=== PATIENT | male | born 1960 | race African-American/Black ===

== ENCOUNTER 2016-12-24 21:01 | Emergency (ER) | payer MEDICARE, MEDICAID ==
[~2016-12-24] VITALS: Ht 170.2 cm; Wt 74.2 kg
[~2016-12-24 21:01] MED LIST: CARB15DR50 OP; DOCU100C59 PO; HYDR30CR77 RECTALLY; MULT-806 PO; OLAN20TA PO; OXYB15TA PO; SERT-88 PO; SIMV20TA89 PO; TERA2CAP PO; TRAV5DRO OP; [UNRECOGNIZED DRUG - CODE] PO; [UNRECOGNIZED DRUG - CODE] PO
--- OUTSIDE RECORDS SUMMARY | 2016-12-24 21:05 | XMS REPORT | Continuity of Care Document ---
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 - *Chronic Learning disability - *Chronic Depression - *Chronic Myopia of both eyes - *Chronic Hemorrhoids - *Chronic Seizure disorder - *Acute BPH - *Controlled Hypertonicity of bladder - *Controlled Other abnormal granulation tissue - Improved 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 - Improved Tympanic membrane perforation - *Stable 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 - *Resolved Tympanosclerosis - *Chronic Hypertonicity of bladder - *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 - *Chronic Pain in limb - *Acute Myringitis, chronic - *Poor control Granulation tissue abnormality - *Chronic Other specific developmental learning difficulties - *Chronic Hypertonicity of bladder - *Controlled BPH - *Controlled Family History Family Member Diagnosis Age At Onset Status Unknown Social History Social History Element Description Quantity Unknown Allergies, Adverse Reactions, Alerts Substance Reaction Severity Status PENICILLINS Unknown ACETAMINOPHEN Unknown HYDROCODONE BITARTRATE Unknown AMPICILLIN Unknown Medications Medication Instructions Dosage Effective Dates (start - stop) Status Lotrisone 1 %-0.05 % topical cream apply by topical route every day prn 0 - Active Tums 200 mg calcium (500 mg) chewable tablet take 2 by Oral route every 4 hours as needed 0 - Active hydrocortisone 1 % topical cream apply by topical route every day as needed 0 - Active loperamide 2 mg tablet take 1 (2MG) by oral route initiallt, then 1 cap after each loose stool max of 4 days - Active Guaifenesin-DM 10 mg-100 mg/5 mL oral liquid take 2 teaspoon by oral route every 4 hours as needed 10 - Active Senokot-S 8.6 mg-50 mg tablet take 2 Tablet by oral route 2 times every day as needed 0 - Active acetaminophen 325 mg tablet take 1 by Oral route every day as needed or 500mg as needed - Active Calmoseptine 0.44 %-20.625 % topical ointment Apply to perineal region afer each BM (clean first with moist towelettes) - Active Refresh Tears 0.5 % eye drops instill 2 drops in both eyes q am for red or dry eyes - Active Sudogest 30 mg tablet take 2 tablet (60MG) by oral route every 6 hours as needed 60 MG - Active TAKE 1 DAILY - Active Milk of Magnesia 400 mg/5 mL oral suspension take 30 milliliter by oral route every day as needed, followed by a full glass (8 oz) of liquid 0 2011 - Active simvastatin 20 mg tablet take 1 tablet (20MG) by oral route every day in the evening 20 MG - Active docusate sodium 100 mg tablet take 1 tablet (100MG) by oral route every day at bedtime as needed 100 MG - Active multivitamin tablet take 1 Tablet by Oral route every day 0 - Active terazosin 2 mg capsule take 1 capsule (2MG) by oral route every day at bedtime 2 MG - Active Zyprexa 20 mg tablet take 1 tablet (20MG) by oral route every day 20 MG - Active Advil 200 mg tablet take 1 tablet (200MG) by oral route every 6 hours as needed with food 200 MG - Active sertraline 100 mg tablet take 1 tablet (100MG) by oral route every day 100 MG - Active Proctozone-HC 2.5 % rectal cream apply by topical route 2 times every day to the affected area(s) 0 - Active Claritin Liqui-Gel 10 mg capsule take 1 cap daily - Active Travatan Z 0.004 % eye drops instill 1 drop by ophthalmic route every day into affected eye(s) in the evening 0 - Active ofloxacin 0.3 % ear drops instill 5 drops to right ear bid. - Active bisacodyl 10 mg rectal suppository insert 1 suppository (10MG) by rectal route every day as needed for constipation 10 MG - Active oxybutynin chloride ER 15 mg tablet,extended release 24 hr Take 1 tablet by mouth every day. - Active Immunizations Vaccine Date Status Comments Unknown Results Test Name Date and Time Measure Units Reference Range Abnormal Flag Comments Unknown Vital Signs Date / Time: Height Weight Pulse Rate Blood Pressure Temperature Unknown Procedures Procedure Date Unknown Encounters Encounter Location Date Patient Visit [facility] Pod Patient Visit Conversion Patient Visit [facility] Patient Visit [facility] Patient Visit [facility] Patient Visit [facility] Patient Visit [facility] Patient [facility] Patient Visit [facility] Patient Visit [facility] Patient [facility] Patient Visit [facility] Urology Patient Visit [facility] Patient Visit [facility] Patient Visit [facility] Urology Advance Directives Directive Effective Date Unknown
--- OUTSIDE RECORDS SUMMARY | 2016-12-24 21:05 | XMS REPORT | Referral Summary ---
Author Author [facility], Family Medicine Organization [facility] Address Unknown Phone Unavailable Care Team Providers Care Director Of Physical Education Name Role Phone Madison Junior Primary Care Physician [phone] Encounter VC Date(s): 06/22/15 - 06/22/15 [facility], [address] [place] [id number]- Discharge Disposition: 01-Home or Self Care Attending Physician: Villa Junior MD Admitting Physician: Villa Junior MD Vital Signs Most recent to 1 oldest [Reference Range]: Peripheral Pulse 84 bpm Rate [60-100 bpm] (06/22/15 2:07 PM) Blood Pressure 104/72 mmHg [90-140/60-90 mmHg] (06/22/15 2:07 PM) Problem List Condition Effective Dates Status Health Status Informant Overactive Active bladder(Confirmed) Bleeding Active hemorrhoid(Confirmed ) History of Active BPH(Confirmed) History of mental Active retardation(Confirme d) Hypercholesterolemia Active (Confirmed) Minimally Enlarged Active prostate(Confirmed) Legally Active blind(Confirmed) Prostatism(Confirmed Active ) Tobacco Active patient user(Confirmed) Allergies, Adverse Reactions, Alerts Substance Reaction Severity Status acetaminophen Active ampicillin Active HYDROcodone Active penicillin Active Medications benztropine 0.5 mg oral tablet mg tabs, Oral, BID, 0 Refill(s) Start Date: 06/22/15 Status: Ordered divalproex sodium 500 mg oral delayed release tablet 500 mg 1 tabs, Oral, BID, 0 Refill(s) Start Date: 06/22/15 Status: Ordered docusate sodium 100 mg oral capsule 100 mg, Oral, Daily, PT NEEDS APPT FOR ADDITIONAL REFILLS Fax- [phone], # 30 tabs, 0 Refill(s), Pharmacy: [facility] [place], 100 mg Oral Daily, Instr:PT NEEDS APPT FOR ADDITIONAL REFILLS; Fax- [phone] Start Date: 06/11/15 Status: Ordered loratadine 10 mg oral capsule 10 mg, Oral, Daily, MUST HAVE APPT PRIOR TO ADDITIONAL REFILLS [phone] , # 30 caps, 0 Refill(s), Pharmacy: [facility] [place], 10 mg Oral Daily, Instr:MUST HAVE APPT PRIOR TO ADDITIONAL REFILLS; [phone] Start Date: 06/11/15 Status: Ordered Milk of Magnesia 8% oral suspension 2.4 g 30 mL, Oral, Daily, as needed for constipation, For up to 3 days, # 360 mL , 10 Refill(s), Pharmacy: [facility] [place] Start Date: 06/08/15 Status: Ordered oxybutynin 15 mg/24 hr oral tablet, extended release 15 mg 1 tabs, Oral, Daily, # 30 tabs, 0 Refill(s), Pharmacy: [facility] [place], 1 tabs Oral Daily Start Date: 06/15/15 Status: Ordered Refresh ophthalmic solution 2 drops, Eye-Both, Daily, # 30 mL, 11 Refill(s) Start Date: 01/18/15 Status: Ordered RisperDAL Consta 50 mg/2 weeks intramuscular injection, extended release IntraMuscular, q2wk, 0 Refill(s) Start Date: 09/15/14 Status: Ordered sertraline 100 mg oral tablet 100 mg 1 tabs, Oral, Daily, # 30 tabs, 0 Refill(s), Pharmacy: [facility] [place], 1 tabs Oral Daily Start Date: 06/15/15 Status: Ordered simvastatin 20 mg oral tablet 20 mg 1 tabs, Oral, Bedtime (once a day), # 90 tabs, 1 Refill(s), Pharmacy: [facility] [place], 1 tabs Oral Bedtime (once a day) Start Date: 12/14/15 Status: Ordered terazosin 2 mg oral capsule 2 mg 1 caps, Oral, Bedtime (once a day), # 30 caps, 0 Refill(s), Pharmacy: [facility] [place], 1 caps Oral Bedtime (once a day) Start Date: 06/15/15 Status: Ordered Therems M oral tablet 1 tabs, Oral, Daily, NEEDS APPT PRIOR TO ADDITIONAL REFILLS, # 30 tabs, 0 Refill (s), Pharmacy: [facility] [place] Start Date: 06/11/15 Status: Ordered Therems M oral tablet 1 tabs, Oral, Daily, # 30 tabs, 0 Refill(s), Pharmacy: [facility] [place] Start Date: 06/15/15 Status: Ordered Travatan Z 0.004% ophthalmic solution 1 drops, Eye-Both, qPM, [facility] , # 2 mL, 1 Refill(s) Start Date: 12/09/14 Status: Ordered Vitamin B12 500 mcg oral tablet 1 tabs, Oral, Daily, 0 Refill(s) Start Date: 09/15/14 Status: Ordered Results No data available for this section Immunizations Vaccine Date Refusal Reason tetanus/diphth/pertuss (Tdap) adult/adol 07/30/09 hepatitis B adult vaccine 09/02/02 hepatitis B adult vaccine 04/02/02 hepatitis B adult vaccine 06/18/01 influenza virus vaccine, inactivated 08/04/15 influenza virus vaccine, inactivated 08/05/14 tetanus-diphth toxoids (Td) adult/adol 12/19/94 Procedures Procedure Date Related Diagnosis Body Site Colonoscopy - repeat 10 yrs (09/16/2019) 09/16/09 Social History Social History Type Response Smoking Status Current every day smoker; Type: Cigarettes; Tobacco use per day: 1 Pack; Started at age: 89 1States he smokes 1 cigarette each day. Assessment and Plan Extracted from: Title: Ambulatory Patient Education Author: Villa Junior MD Date: Family Medicine Cholesterol Cholesterol is a fat. Your body needs a small amount of cholesterol. Cholesterol may build up in your blood vessels. This increases your chance of having a heart attack or stroke. You cannot feel your cholesterol levels. The only way to know your cholesterol level is high is with a blood test. Keep your test results. Work with your doctor to keep your cholesterol at a good level. WHAT DO THE TEST RESULTS MEAN? Total cholesterol is how much cholesterol is in your blood. LDL is bad cholesterol. This is the type that can build up. You want LDL to be low. HDL is good cholesterol. It cleans your blood vessels and carries LDL away. You want HDL to be high. Triglycerides are fat that the body can burn for energy or store. WHAT ARE GOOD LEVELS OF CHOLESTEROL? Total cholesterol below 200. LDL below 100 for people at risk. Below 70 for those at very high risk. HDL above 50 is good. Above 60 is best. Triglycerides below 150. HOW CAN I LOWER MY CHOLESTEROL? Diet. Follow your diet programs as told by your doctor. Choose fish, white meat chicken, roasted turkey, or baked turkey. Try not to eat red meat, fried foods, or processed meats such as sausage and lunch meats. Eat lots of fresh fruits and vegetables. Choose whole grains, beans, pasta, potatoes, and cereals. Use only small amounts of olive, corn, or canola oils. Try not to eat butter, mayonnaise, shortening, or palm kernel oils. Try not to eat foods with trans fats. Drink skim or nonfat milk. Eat low-fat or nonfat yogurt and cheeses. Try not to drink whole milk or cream. Try not to eat ice cream, egg yolks, and full- fat cheeses. Healthy desserts include luisa food cake, gema snaps, animal crackers, hard candy, popsicles, and low-fat or nonfat frozen yogurt. Try not to eat pastries, cakes, pies, and cookies. Exercise. Follow your exercise programs as told by your doctor. Be more active. You can try gardening, walking, or taking the stairs. Ask your doctor about how you can be more active. Medicine. Take medicine as told by your doctor. Document Released: 12/21/2009 Document Revised: 02/08/2015 Document Reviewed: [facility] Patient Information 2015 [facility]. This information is not intended to replace advice given to you by your health care provider. Make sure you discuss any questions you have with your health care provider. Ophthalmology Blurred Vision You have been seen today complaining of blurred vision. This means you have a loss of ability to see small details. CAUSES Blurred vision can be a symptom of underlying eye problems, such as: Aging of the eye (presbyopia). Glaucoma. Cataracts. Eye infection. Eye-related migraine. Diabetes mellitus. Fatigue. Migraine headaches. High blood pressure. Breakdown of the back of the eye (macular degeneration). Problems caused by some medications. The most common cause of blurred vision is the need for eyeglasses or a new prescription. Today in the emergency department, no cause for your blurred vision can be found. SYMPTOMS Blurred vision is the loss of visual sharpness and detail (acuity). DIAGNOSIS Should blurred vision continue, you should see your caregiver. If your caregiver is your primary care physician, he or she may choose to refer you to another specialist. TREATMENT Do not ignore your blurred vision. Make sure to have it checked out to see if further treatment or referral is necessary. SEEK MEDICAL CARE IF: You are unable to get into a specialist so we can help you with a referral. SEEK IMMEDIATE MEDICAL CARE IF: You have severe eye pain, severe headache, or sudden loss of vision. MAKE SURE YOU: Understand these instructions. Will watch your condition. Will get help right away if you are not doing well or get worse. Document Released: 09/26/2004 Document Revised: 12/16/2012 Document Reviewed: [facility] Patient Information 2015 [employer]. This information is not intended to replace advice given to you by your health care provider. Make sure you discuss any questions you have with your health care provider. No follow up information was provided. Extracted from: Title: Office Visit Note Author: Villa Junior MD Date: 06/22/15 Assessment/Plan History of BPH Continue with the current medications. Ordered: Office Visit Level 4 Est 38097 History of mental retardation stable. Ordered: Office Visit Level 4 Est 46098 Hypercholesterolemia Ordered: Office Visit Level 4 Est 65454 Legally blind Ordered: Office Visit Level 4 Est 64612
--- OUTSIDE RECORDS SUMMARY | 2016-12-24 21:05 | XMS REPORT | Referral Summary ---
Author Author [facility] Organization [facility] Address Unknown Phone Unavailable Care Team Providers Care Accounts Payable Payroll Coordinator Name Role Phone Madison Junior Primary Care Physician [phone] Encounter VC Date(s): 06/28/16 - 06/28/16 [facility], [address] [place] [address]- Discharge Diagnosis: Bleeding hemorrhoid Discharge Diagnosis: Hypercholesterolemia Discharge Diagnosis: History of mental retardation Discharge Diagnosis: History of BPH Discharge Diagnosis: Tobacco user Discharge Disposition: 01-Home or Self Care Attending Physician: Villa Junior MD Admitting Physician: Villa Junior MD Vital Signs Most recent to 1 oldest [Reference Range]: Peripheral Pulse 92 bpm Rate [60-100 bpm] (06/28/16 1:42 PM) Blood Pressure 126/82 mmHg [90-140/60-90 mmHg] (06/28/16 1:42 PM) SpO2 96 % (06/28/16 1:42 PM) Problem List Condition Effective Dates Status [...] PT NEEDS APPT FOR ADDITIONAL REFILLS Fax- [phone], # 90 tabs, 0 Refill(s), Pharmacy: [facility] [place], 100 mg Oral Daily, Instr:PT NEEDS APPT FOR ADDITIONAL REFILLS; Fax- [phone] Start Date: 06/28/16 Status: Ordered loratadine 10 mg oral capsule 10 mg, Oral, Daily, MUST HAVE APPT PRIOR TO ADDITIONAL REFILLS [phone] , # 90 caps, 0 Refill(s), Pharmacy: [facility] [place], 10 mg Oral Daily, Instr:MUST HAVE APPT PRIOR TO ADDITIONAL REFILLS; [phone] Start Date: 06/28/16 Status: Ordered Milk of Magnesia 8% oral suspension 2.4 g 30 mL, Oral, Daily, as needed for constipation, For up to 3 days, # 360 mL , 10 Refill(s), Pharmacy: [facility] [place] Start Date: 06/08/15 Status: Ordered oxybutynin 15 mg/24 hr oral tablet, extended release 15 mg 1 tabs, Oral, Daily, # 90 tabs, 0 Refill(s), Pharmacy: [facility] [place], 1 tabs Oral Daily Start Date: 06/28/16 Status: Ordered Preparation H 0.25%-1% rectal cream See Instructions, Use as directed on package, # 1 Each, 0 Refill(s), Pharmacy: [facility] [place] Start Date: 01/27/16 Status: Ordered Refresh ophthalmic solution 2 drops, Eye-Both, Daily, # 30 mL, 11 Refill(s) Start Date: 01/18/15 Status: Ordered RisperDAL Consta 50 mg/2 weeks intramuscular injection, extended release 50 mg, IntraMuscular, q2wk, # 2 syringes, 3 Refill(s), Pharmacy: [facility] [place], 50 mg IntraMuscular q2wk Start Date: 03/15/16 Status: Ordered sertraline 100 mg oral tablet 100 mg 1 tabs, Oral, Daily, # 90 tabs, 0 Refill(s), Pharmacy: [facility] [place], 1 tabs Oral Daily Start Date: 06/28/16 Status: Ordered simvastatin 20 mg oral tablet 20 mg 1 tabs, Oral, Bedtime (once a day), keep appt scheduled in Sept or no additional refills, # 90 tabs, 0 Refill(s), Pharmacy: [facility] [place], 1 tabs Oral Bedtime (once a day),Instr:keep appt scheduled in Jun or no additional refills Start Date: 06/28/16 Status: Ordered terazosin 2 mg oral capsule 2 mg 1 caps, Oral, Bedtime (once a day), # 90 caps, 0 Refill(s), Pharmacy: [facility] [place], 1 caps Oral Bedtime (once a day) Start Date: 06/28/16 Status: Ordered Therems M oral tablet 1 tabs, Oral, Daily, # 90 tabs, 0 Refill(s), Pharmacy: [facility] [place] Start Date: 06/28/16 Status: Ordered Therems M oral tablet 1 tabs, Oral, Daily, # 30 tabs, 0 Refill(s), Pharmacy: [facility] [place] Start Date: 06/15/15 Status: Ordered Travatan Z 0.004% ophthalmic solution 1 drops, Eye-Both, qPM, [facility] , must have appt. for any more refills., # 2 mL, 0 Refill(s), Pharmacy: [facility] [place] Start Date: 06/14/16 Status: Ordered Vitamin B12 500 mcg oral tablet 500 mcg 1 tabs, Oral, Daily, # 90 tabs, 0 Refill(s), Pharmacy: [facility] [place], 1 tabs Oral Daily Start Date: 06/28/16 Status: Ordered Results No data available for [...] Author: Villa Junior MD Date: Family Medicine Fat and Cholesterol Restricted Diet High levels of fat and cholesterol in your blood may lead to various health problems, such as diseases of the heart, blood vessels, gallbladder, liver, and pancreas. Fats are concentrated sources of energy that come in various forms. Certain types of fat, including saturated fat, may be harmful in excess. Cholesterol is a substance needed by your body in small amounts. Your body makes all the cholesterol it needs. Excess cholesterol comes from the food you eat. When you have high levels of cholesterol and saturated fat in your blood, health problems can develop because the excess fat and cholesterol will gather along the donato of your blood vessels, causing them to narrow. Choosing the right foods will help you control your intake of fat and cholesterol. This will help keep the levels of these substances in your blood within normal limits and reduce your risk of disease. WHAT IS MY PLAN? Your health care provider recommends that you: Get no more than % of the total calories in your daily diet from fat. Limit your intake of saturated fat to less than % of your total calories each day. Limit the amount of cholesterol in your diet to less than mg per day. WHAT TYPES OF FAT SHOULD I CHOOSE? Choose healthy fats more often. Choose monounsaturated and polyunsaturated fats, such as olive and canola oil, flaxseeds, walnuts, almonds , and seeds. Eat more omega-3 fats. Good choices include salmon, mackerel, sardines, tuna, flaxseed oil, and ground flaxseeds. Aim to eat fish at least two times a week. Limit saturated fats. Saturated fats are primarily found in animal products, such as meats, butter, and cream. Plant sources of saturated fats include palm oil, palm kernel oil, and coconut oil. Avoid foods with partially hydrogenated oils in them. These contain trans fats. Examples of foods that contain trans fats are stick margarine, some tub margarines, cookies, crackers, and other baked goods. WHAT GENERAL GUIDELINES DO I NEED TO FOLLOW? These guidelines for healthy eating will help you control your intake of fat and cholesterol: Check food labels carefully to identify foods with trans fats or high amounts of saturated fat. Fill one half of your plate with vegetables and green salads. Fill one fourth of your plate with whole grains. Look for the word "whole " as the first word in the ingredient list. Fill one fourth of your plate with lean protein foods. Limit fruit to two servings a day. Choose fruit instead of juice. Eat more foods that contain soluble fiber. Examples of foods that contain this type of fiber are apples, broccoli, carrots, beans, peas, and barley. Aim to get 2030 g of fiber per day. Eat more home-cooked food and less restaurant, buffet, and fast food. Limit or avoid alcohol. Limit foods high in starch and sugar. Limit fried foods. Cook foods using methods other than frying. Baking, boiling, grilling, and broiling are all great options. Lose weight if you are overweight. Losing just 510% of your initial body weight can help your overall health and prevent diseases such as diabetes and heart disease. WHAT FOODS CAN I EAT? Grains Whole grains, such as whole wheat or whole grain breads, crackers, cereals, and pasta. Unsweetened oatmeal, bulgur, barley, quinoa, or brown rice. [place] or whole wheat flour tortillas. Vegetables Fresh or frozen vegetables (raw, steamed, roasted, or grilled). Green salads. Fruits All fresh, canned (in natural juice), or frozen fruits. Meat and Other Protein Products Ground beef (85% or leaner), grass-fed beef, or beef trimmed of fat. Skinless chicken or turkey. Ground chicken or turkey. Pork trimmed of fat. All fish and seafood. Eggs. Dried beans, peas, or lentils. Unsalted nuts or seeds. Unsalted canned or dry beans. Dairy Low-fat dairy products, such as skim or 1% milk, 2% or reduced-fat cheeses, low- fat ricotta or cottage cheese, or plain low-fat yogurt. Fats and Oils Tub margarines without trans fats. Light or reduced-fat mayonnaise and salad dressings. Avocado. Sandy, canola, sesame, or safflower oils. Natural peanut or almond butter (choose ones without added sugar and oil). The items listed above may not be a complete list of recommended foods or beverages. Contact your dietitian for more options. WHAT FOODS ARE NOT RECOMMENDED? Grains White bread. White pasta. White rice. Cornbread. Bagels, pastries, and croissants. Crackers that contain trans fat. Vegetables White potatoes. [place]. Creamed or fried vegetables. Vegetables in a cheese sauce. Fruits Dried fruits. Canned fruit in light or heavy syrup. Fruit juice. Meat and Other Protein Products Fatty cuts of meat. Ribs, chicken wings, burgos, sausage, bologna, salami, chitterlings, fatback, hot dogs, bratwurst, and packaged luncheon meats. Liver and organ meats. Dairy Whole or 2% milk, cream, [id number]-ovpx, and cream cheese. Whole milk cheeses. Whole-fat or sweetened yogurt. Full-fat cheeses. Nondairy creamers and whipped toppings. Processed cheese, cheese spreads, or cheese curds. Sweets and Desserts [place] syrup, sugars, honey, and molasses. Candy. Jam and jelly. Syrup. Sweetened cereals. Cookies, pies, cakes, donuts, muffins, and ice cream. Fats and Oils Butter, stick margarine, lard, shortening, ghee, or burgos fat. Coconut, palm kernel, or palm oils. Beverages Alcohol. Sweetened drinks (such as sodas, lemonade, and fruit drinks or punches) . The items listed above may not be a complete list of foods and beverages to avoid. Contact your dietitian for more information. This information is not intended to replace advice given to you by your health care provider. Make sure you discuss any questions you have with your health care provider. Document Released: 09/24/2006 Document Revised: 10/15/2015 Document Reviewed: [facility] Patient Information 2016 [employer]rum. Obstetrics and Gynecology Hemorrhoids Hemorrhoids are swollen veins around the rectum or anus. There are two types of hemorrhoids: Internal hemorrhoids. These occur in the veins just inside the rectum. They may poke through to the outside and become irritated and painful. External hemorrhoids. These occur in the veins outside the anus and can be felt as a painful swelling or hard lump near the anus. CAUSES . Obesity. Constipation or diarrhea. Straining to have a bowel movement. Sitting for long periods on the toilet. Heavy lifting or other activity that caused you to strain. Anal intercourse. SYMPTOMS Pain. Anal itching or irritation. Rectal bleeding. Fecal leakage. Anal swelling. One or more lumps around the anus. DIAGNOSIS Your caregiver may be able to diagnose hemorrhoids by visual examination. Other examinations or tests that may be performed include: Examination of the rectal area with a gloved hand (digital rectal exam). Examination of anal canal using a small tube (scope). A blood test if you have lost a significant amount of blood. A test to look inside the colon (sigmoidoscopy or colonoscopy). TREATMENT Most hemorrhoids can be treated at home. However, if symptoms do not seem to be getting better or if you have a lot of rectal bleeding, your caregiver may perform a procedure to help make the hemorrhoids get smaller or remove them completely. Possible treatments include: Placing a rubber band at the base of the hemorrhoid to cut off the circulation (rubber band ligation). Injecting a chemical to shrink the hemorrhoid (sclerotherapy). Using a tool to burn the hemorrhoid (infrared light therapy). Surgically removing the hemorrhoid (hemorrhoidectomy). Stapling the hemorrhoid to block blood flow to the tissue (hemorrhoid stapling). HOME CARE INSTRUCTIONS Eat foods with fiber, such as whole grains, beans, nuts, fruits, and vegetables. Ask your doctor about taking products with added fiber in them ( fibersupplements). Increase fluid intake. Drink enough water and fluids to keep your urine clear or pale yellow. Exercise regularly. Go to the bathroom when you have the urge to have a bowel movement. Do not wait. Avoid straining to have bowel movements. Keep the anal area dry and clean. Use wet toilet paper or moist towelettes after a bowel movement. Medicated creams and suppositories may be used or applied as directed. Only take tdxp-qqg-ndpnwuv or prescription medicines as directed by your caregiver. Take warm sitz baths for 1520 minutes, 34 times a day to ease pain and discomfort. Place ice packs on the hemorrhoids if they are tender and swollen. Using ice packs between sitz baths may be helpful. Put ice in a plastic bag. Place a towel between your skin and the bag. Leave the ice on for 1520 minutes, 34 times a day. Do not use a donut-shaped pillow or sit on the toilet for long periods. This increases blood pooling and pain. SEEK MEDICAL CARE IF: You have increasing pain and swelling that is not controlled by treatment or medicine. You have uncontrolled bleeding. You have difficulty or you are unable to have a bowel movement. You have pain or inflammation outside the area of the hemorrhoids. MAKE SURE YOU: Understand these instructions. Will watch your condition. Will get help right away if you are not doing well or get worse. This information is not intended to replace advice given to you by your health care provider. Make sure you discuss any questions you have with your health care provider. Document Released: 09/21/2001 Document Revised: 09/10/2013 Document Reviewed: [facility] Patient Information 2016 ilustrum. No follow up information was provided. Extracted from: Title: Office Visit Note Author: Villa Junior MD Date: 06/28/16 Assessment/Plan 1.Bleeding hemorrhoid Continue with the current treatment. Staff is trying to work with him on not wiping the rectum so hard. Ordered: Office Visit Level 4 Est 11868 2.History of BPH stable. Ordered: Office Visit Level 4 Est 79466 3.History of mental retardation Unchanged. Ordered: Office Visit Level 4 Est 56082 4.Hypercholesterolemia No change in treatment. Ordered: Office Visit Level 4 Est 32812 5.Tobacco user Encourage to stop smoking. Ordered: Office Visit Level 4 Est 96884
--- OUTSIDE RECORDS SUMMARY | 2016-12-24 21:05 | XMS REPORT | Referral Summary ---
Author Author [facility] Organization [facility] Address Unknown Phone Unavailable Care Team Providers Care Carrier Blower Name Role Phone Madison Junior Primary Care Physician [phone] Encounter VC Date(s): 08/04/15 - 08/04/15 [facility], [address] [place] [address]- Discharge Disposition: 01-Home or Self Care Attending Physician: Villa Junior MD Admitting Physician: Villa Junior MD Vital Signs No data available for this section Problem List Condition Effective Dates Status Health [...] PT NEEDS APPT FOR ADDITIONAL REFILLS Fax- [phone], # 30 tabs, 0 Refill(s), Pharmacy: [facility] [place], 100 mg Oral Daily, Instr:PT NEEDS APPT FOR ADDITIONAL REFILLS; Fax- [phone] Start Date: 06/11/15 Status: Ordered loratadine 10 mg oral capsule 10 mg, Oral, Daily, MUST HAVE APPT PRIOR TO ADDITIONAL REFILLS [phone] , # 30 caps, 0 Refill(s), Pharmacy: [facility] [place], 10 mg Oral Daily, Instr:MUST HAVE APPT PRIOR TO ADDITIONAL REFILLS; [phone] Start Date: 06/11/15 Status: Ordered Milk of [...] tabs, Oral, Bedtime (once a day), # 30 tabs, 0 Refill(s), Pharmacy: [facility] [place], 1 tabs Oral Bedtime (once a day) Start Date: 06/15/15 Status: Ordered terazosin 2 mg oral capsule [...] 1 cigarette each day. Assessment and Plan No data available for this section
--- OUTSIDE RECORDS SUMMARY | 2016-12-24 21:05 | XMS REPORT | Continuity of Care Document ---
Author Author [facility] Organization [facility] Address Unknown Phone Unavailable Allergies Active Description Code Type Severity Reaction Onset Reported/Identified Relationship to Patient Clinical Status Yes acetaminophen NKMA N/A N/A 02/04/2014 Yes ampicillin NKMA N/A N/A 02/04/2014 Yes HYDROcodone NKMA N/A N/A 02/04/2014 Yes penicillin NKMA N/A N/A 02/04/2014 Medications Problems Procedures Results Encounters ACCT No. Visit Date/Time Discharge Status Pt. Type Provider Facility Loc./Unit Complaint [id number] 12/29/2013 13:42:00 12/29/2013 23 :59:59 [facility] Outpatient [id number] 07/29/2013 13:52:00 07/29/2013 23 :59:59 [facility] Outpatient
--- OUTSIDE RECORDS SUMMARY | 2016-12-24 21:06 | XMS REPORT | Referral Summary ---
Author Author [facility] Organization [facility] Address Unknown Phone Unavailable Care Team Providers Care Rn Pain Management Name Role Phone Madison Junior Primary Care Physician [phone] Encounter VC Date(s): 08/04/15 - 08/04/15 [facility], [address] [place] [address]- Discharge Disposition: 01-Home or Self Care Attending [...] PT NEEDS APPT FOR ADDITIONAL REFILLS Fax- [phone], # 30 tabs, 0 Refill(s), Pharmacy: [facility] [place], 100 mg Oral Daily, Instr:PT NEEDS APPT FOR ADDITIONAL REFILLS; Fax- [phone] Start Date: 06/11/15 Status: Ordered loratadine 10 mg oral capsule 10 mg, Oral, Daily, MUST HAVE APPT PRIOR TO ADDITIONAL REFILLS [phone] , # 30 caps, 0 Refill(s), Pharmacy: [facility] [place], 10 mg Oral Daily, Instr:MUST HAVE APPT PRIOR TO ADDITIONAL REFILLS; [phone] Start Date: 06/11/15 Status: Ordered Milk of [...] Oral Daily Start Date: 06/15/15 Status: Ordered Preparation H 0.25%-1% rectal cream [...]
--- OUTSIDE RECORDS SUMMARY | 2016-12-24 21:06 | XMS REPORT | Continuity of Care Document ---
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 - *Chronic Learning disability - *Chronic Depression - *Chronic Myopia of both eyes - *Chronic Hemorrhoids - *Chronic Seizure disorder - *Acute Other abnormal granulation tissue - Improved Chronic [...] Severity Status PENICILLINS Unknown ACETAMINOPHEN Unknown HYDROCODONE BIT Unknown AMPICILLIN Unknown Medications Medication Instructions Dosage Effective Dates (start - stop) Status Calmoseptine 0.44 %-20.625 % Topical Ointment Apply to perineal region afer each BM (clean first with moist towelettes) - Active Refresh Tears 0.5 % Eye Drops instill 2 drops in both eyes q am for red or dry eyes - Active Sudogest 30 mg tablet take 2 tablet (60MG) by oral route every 6 hours as needed 60 MG - Active TAKE 1 DAILY - Active Milk of Magnesia 400 mg/5 mL Oral Susp take 30 milliliter by oral route every day as needed, followed by a full glass (8 oz) of liquid 0 - Active simvastatin 20 mg tablet take [...] 100 MG - Active Proctozone-HC 2.5 % Rectal Cream apply by topical route 2 times every day to the affected area(s) 0 - Active Claritin Liqui-Gel 10 mg capsule take 1 cap daily - Active Travatan Z 0.004 % Eye Drops instill 1 drop by ophthalmic route every day into affected eye(s) in the evening 0 - Active ofloxacin 0.3 % Ear Drops instill 5 drops to right ear bid. - Active oxybutynin chloride ER 15 mg tablet,extended release 24 hr Take 1 tablet by mouth every day. - Active Immunizations Vaccine Date Status Comments Unknown Results Test Name Date and Time Measure Units Reference Range Abnormal Flag Comments Panel Description: Prostatic Specific Antigen-AMS PSA 13:52:00 0.7 ng/mL 0.0-3.5 AUA PSA Best Practice Guidelines: Age-Adjusted PSA Values by Ethnic GroupAge Range Asians - Caucasians [id number] 0-2.0 0-2.0 0-2.550-59 0-3.0 0-4.0 0-3.560-69 0-4.0 0-4.5 0-4.570-79 0-5.0 0-5.5 0-6.5Testing performed at [facility] [address] [facility] [address] Hotel Yardperson Sonu Rivera MD Vital Signs Date / Time: Height Weight Pulse Rate Blood Pressure Temperature /13:53:00 67.50 in 160.00 lbs 80 /min 106/72 mm[Hg] Procedures Procedure Date Unknown Encounters Encounter Location Date [facility] Patient Visit Conversion Patient [facility] Patient [facility] Patient [facility] Patient Visit [facility] E[facility] Patient [facility] Patient Visit [facility] Patient Visit [facility] Patient Visit [facility] Patient [facility] Patient Visit [facility] Patient Visit [facility] Patient Visit [facility] Advance Directives Directive Effective Date Unknown
--- OUTSIDE RECORDS SUMMARY | 2016-12-24 21:06 | XMS REPORT | Referral Summary ---
Author Author [facility] Organization [facility] Address Unknown Phone Unavailable Care Team Providers Care Debt Collector Name Role Phone Madison Junior Primary Care Physician [phone] Encounter VC Date(s): 08/30/16 - 08/30/16 [facility], [address] [place] [id number]- Discharge Diagnosis: Bleeding hemorrhoid Discharge Disposition: 01-Home or Self Care Attending Physician: Lorrie Nunez PA-C Admitting Physician: Lorrie Nunez PA-C Vital Signs Most recent to 1 oldest [Reference Range]: Blood Pressure 126/82 mmHg [90-140/60-90 mmHg] (08/30/16 2:16 PM) Problem List Condition Effective Dates Status Health Status Informant Overactive Active bladder(Confirmed) Bleeding Active hemorrhoid(Confirmed ) History of Active BPH(Confirmed) History of mental Active retardation(Confirme d) Hypercholesterolemia Active (Confirmed) Minimally Enlarged Active prostate(Confirmed) Legally Active blind(Confirmed) Prostatism(Confirmed Active ) Tobacco Active patient user(Confirmed) Allergies, Adverse Reactions, Alerts Substance Reaction Severity Status ampicillin Active HYDROcodone Active penicillin Active Medications benztropine 0.5 mg oral tablet mg tabs, Oral, BID, 0 Refill(s) Start Date: 06/22/15 Status: Ordered divalproex sodium 500 mg oral delayed release tablet 500 mg 1 tabs, Oral, BID, 0 Refill(s) Start Date: 06/22/15 Status: Ordered docusate sodium 100 mg oral capsule 100 mg, Oral, Daily, PT NEEDS APPT FOR ADDITIONAL REFILLS Fax- [phone], # 90 tabs, 0 Refill(s), Pharmacy: [facility] [place], 100 mg Oral Daily, Instr:PT NEEDS APPT FOR ADDITIONAL REFILLS; Fax- [phone] Start Date: 08/15/16 Status: Ordered lidocaine-hydrocortisone 3%-0.5% rectal cream 1 jerri, Rectal, BID, Hemorrhoids, # 28 g, 0 Refill(s) Start Date: 08/30/16 Status: Ordered loratadine 10 mg oral tablet 10 mg 1 tabs, Oral, Daily, # 90 tabs, 0 Refill(s), Pharmacy: [facility] [place], 1 tabs Oral Daily Start Date: 08/16/16 Status: Ordered Milk of Magnesia 8% oral suspension 2.4 g 30 mL, Oral, Daily, as needed for constipation, For up to 3 days, # 360 mL , 10 Refill(s), Pharmacy: [facility] [place] Start Date: 06/08/15 Status: Ordered MiraLax oral powder for reconstitution 17 g, Oral, Daily, dissolve in water before taking, # 255 g, 0 Refill(s) Start Date: 08/30/16 Status: Ordered oxybutynin 15 mg/24 hr oral tablet, extended release 15 mg 1 tabs, Oral, Daily, # 90 tabs, 0 Refill(s), Pharmacy: [facility] [place], 1 tabs Oral Daily Start Date: 08/15/16 Status: Ordered Preparation H 0.25%-1% rectal cream See Instructions, Use as directed on package, # 1 Each, 0 Refill(s), Pharmacy: [facility] [place] Start Date: 01/27/16 Status: Ordered Preparation H Hydrocortisone 1 jerri, Rectal, BID, as needed for hemorrhoids., 0 Refill(s) Start Date: 08/30/16 Status: Ordered Refresh ophthalmic solution 2 drops, Eye-Both, Daily, # 30 mL, 11 Refill(s) Start Date: 01/18/15 Status: Ordered RisperDAL Consta 50 mg/2 weeks intramuscular injection, extended release 50 mg, IntraMuscular, q2wk, # 2 syringes, 5 Refill(s), Pharmacy: [facility] [place], 50 mg IntraMuscular q2wk Start Date: 08/09/16 Status: Ordered sertraline 100 mg oral tablet 100 mg 1 tabs, Oral, Daily, # 90 tabs, 0 Refill(s), Pharmacy: [facility] [place], 1 tabs Oral Daily Start Date: 08/15/16 Status: Ordered simvastatin 20 mg oral tablet 20 mg 1 tabs, Oral, Bedtime (once a day), keep appt scheduled in Sept or no additional refills, # 90 tabs, 0 Refill(s), Pharmacy: [facility] [place], 1 tabs Oral Bedtime (once a day),Instr:keep appt scheduled in Sept or no additional refills Start Date: 08/15/16 Status: Ordered terazosin 2 mg oral capsule 2 mg 1 caps, Oral, Bedtime (once a day), # 90 caps, 0 Refill(s), Pharmacy: [facility] [place], 1 caps Oral Bedtime (once a day) Start Date: 08/15/16 Status: Ordered Therems M oral tablet 1 tabs, Oral, Daily, # 30 tabs, 0 Refill(s), Pharmacy: [facility] [place] Start Date: 08/15/16 Status: Ordered Therems M oral tablet 1 tabs, Oral, Daily, # 90 tabs, 0 Refill(s), Pharmacy: [facility] [place] Start Date: 06/28/16 Status: Ordered Travatan Z 0.004% ophthalmic solution 1 drops, Eye-Both, qPM, [facility] , must have appt. for any more refills., # 2 mL, 0 Refill(s), Pharmacy: [facility] [place] Start Date: 06/14/16 Status: Ordered Vitamin B12 500 mcg oral tablet 500 mcg 1 tabs, Oral, Daily, # 90 tabs, 0 Refill(s), Pharmacy: [facility] [place], 1 tabs Oral Daily Start Date: 08/15/16 Status: Ordered Results No data available for [...] day. Assessment and Plan Extracted from: Title: Office Visit Note- Author: Lorrie Nunez PA-C Date: 08/30/16 Hemorrhoid Assessment/Plan Bleeding hemorrhoid Will have the pt continue on Docusate, and also add on Miralax daily. Can also try AnaMantle HC instead of Prep H. RTC in 1-2 weeks for recheck. If still having rectal bleeding, may need consult for another colonoscopy. Try to push fluids and increase fiber. Ordered: lidocaine-hydrocortisone topical, 1 jerri, Rectal, BID, Hemorrhoids, # 28 g, 0 Refill(s) polyethylene glycol 3350, 17 g, Oral, Daily, dissolve in water before taking, # 255 g, 0 Refill(s) Office Visit Level 3 Est [address]144
[2016-12-24 21:18] VITALS: Ht 170.2 cm; Wt 74.2 kg
--- NOTE | 2016-12-24 21:39 | NUR ---
REPORT GIVEN TO FRANCISCO CRUZ. CARE ASSUMED.
--- NOTE | 2016-12-24 21:41 | ERPDOC ---
Departure Disposition Decision Date: Dec 24, 2016 Disposition Decision Time: 21:41 Disposition: 01 DISCHARGED HOME, SELF-CARE Impression Impression Impression: Primary Impression: Accidental drug ingestion Encounter type: initial encounter Qualified Codes: T50.901A - Poisoning by unspecified drugs, medicaments and biological substances, accidental ( unintentional), initial encounter Severity: Mild Condition: Improved Seen By: Physician only Referrals: ROBERTO ANDERSEN MD (PCP) Patient Instructions: Medication Safety for Children (DC) Problems/Meds/Labs Reviewed?: Yes Medications reviewed and manag: Yes Additional Instructions: Allow the patient to sleep normally tonight, return to ER for any worsening in condition other than sleepiness Follow up care ordered?: Yes Mental Status: Alert HPI - General Medical General Chief Complaint: General Stated Complaint: TOOK WRONG PT MEDS Time Seen by Provider: 21:37 Source: patient, other Exam Limitations: no limitations HPI - General Medical Initial Comments Patient was accidentally given another clients medication at risk care where he resides. Meds are listed in the nursing report Patient's only symptoms are mild drowsiness, with the new medications Review of the meds shows no overdose, and no dangerous or toxic combinations Occurred At: home Onset: Rapid Duration: 1-3 hrs Severity: mild Associated Symptoms: DENIES: chest pain, cough, diaphoresis, fever/chills, headaches, loss of appetite, malaise, nausea/vomiting, rash, seizure, shortness of breath, syncope, weakness Hx of Similar Symptoms: No Allergies: Coded Allergies: Penicillins (Unverified Adverse Reaction, Unknown, 10/22/13) ampicillin (Unverified Adverse Reaction, Unknown, 10/22/13) hydrocodone (Unverified Adverse Reaction, Unknown, 10/22/13) Past History Past Medical History Metabolic: hypercholesterolemia ENMT: allergies GI: constipation Male: other Psychological: depression Review of Systems Constitutional Constitutional: DENIES: appetite decrease, appetite increase, chills, dizziness , fever, weakness ENMT Ears: DENIES: pain Hearing: DENIES: hearing loss, tinnitus Balance: DENIES: vertigo Mouth/Throat: DENIES: change in swallowing, change in voice, hoarsness, painful swallowing, sore throat Cardiovascular Cardiac: DENIES: chest pain, dyspnea on exertion Rhythm/Rate: DENIES: irregular beat, palpitations, tachycardia Vascular: DENIES: pedal edema Pulmonary Respiratory: DENIES: cough, dyspnea, pleuritic chest pain GI Upper Abdomen: DENIES: dysphagia, heartburn/indigestion, nausea, pain, vomiting Lower Abdomen: DENIES: blood in stool, constipation, diarrhea, pain General: DENIES: burning, dysuria, frequency, pain, urgency Musculoskeletal General: DENIES: cramps, joint pain, joint swelling, pain, weakness Integumentary Skin: DENIES: rash, sores Physical Exam General General Nourishment: well nourished, well developed, appears stated age, no acute distress General Body Habitus: well groomed Vitals and Pain First Documented Vital Signs Date Time Temp Pulse Resp B/P Pulse Ox O2 Delivery O2 Flow Rate FiO2 12/24/16 21:18 97.9 89 16 156/82 98 Room Air Weight: Kilograms: 74.200 Height (feet): 5 Height (inches): 7.00 Triage Pain Scale: RN VS reviewed by Provider: Yes Normal Exams: Head: Normocephalic w/o trauma Eyes: Pupils are PERRLA w/ EOMI, No scleral icterus, irritation, or foreign bodies noted ENMT: No facial trauma, nasal exudates, pharyngeal erythema, or exudates are noted Neck: Full range of motion, without adenopathy, JVD, bruits or thyromegaly Chest/Resp: Clear all quan, with good airflow, and symmetry bilaterally CV: Regular rate and rhythm, without murmur or gallop, Pulses 2+ all extremities, capillary refill, <2 seconds all ext., no pedal edema noted Abdomen: Bowel sounds positive, soft, non-tender, non-distended, no hepatosplenomegaly, masses or bruits noted Lymphatic: No lymphadenopathy, or lymphedema noted Musculoskeletal: No tenderness, or deformity noted, good range of motion, all extremities Integumentary: No rashes, hives, or bruising noted, hair and nails, without abnormality Neurologic: Patient is alert, and oriented, cranial nerves, motor/sensory/ cerebellar, exams w/o gross deficits, to observation Psychiatric: Patient exhibits, appropriate attention, emotion and affect Progress Progress Progress Staff instructed on home care tonight, simply watching the patient for any abnormal medication effects. ATTILA HUANG MD Dec 24, 2016 21:41
[2016-12-24 21:48] VITALS: BP 150/80; PULSE 89; RESP 16; TEMP 97.9; O2SAT 98
--- OUTSIDE RECORDS SUMMARY | 2016-12-24 22:04 | XMS REPORT | Continuity of Care Document ---
Author Author [facility] Organization [facility] Address Unknown Phone Unavailable Allergies Active Description Code Type Severity Reaction Onset Reported/Identified Relationship to Patient Clinical Status Yes acetaminophen NKMA N/A N/A 02/04/2014 Yes ampicillin NKMA N/A N/A 02/04/2014 Yes HYDROcodone NKMA N/A N/A 02/04/2014 Yes penicillin NKMA N/A N/A 02/04/2014 Medications Problems Procedures Results Encounters ACCT No. Visit Date/Time Discharge Status Pt. Type Provider Facility Loc./Unit Complaint [id number] 12/29/2013 13:42:00 12/29/2013 23 :59:59 [facility] Outpatient [id number] 07/29/2013 13:52:00 07/29/2013 23 :59:59 [facility] Outpatient
== END 2016-12-24 21:48 | disposition home or self-care (01) ==
LOC: ED 21:01
DX: T50.901A Poisoning by unspecified drugs, medicaments and biological substances, accidental (unintentional), initial encounter (principal); R40.0 Somnolence; Y92.89 Other specified places as the place of occurrence of the external cause